=== PATIENT | female | born 1935 | race Caucasian/White ===

== ENCOUNTER 2018-01-22 07:49 | Outpatient (CLI) | payer MEDICARE | END 2018-01-22 07:50 | disposition home or self-care (01) | LOC: BICMAMMO 07:49 | PROVIDERS: ATTEND Internal Medicine | DX: Z12.31 Encounter for screening mammogram for malignant neoplasm of breast (principal); R92.1 Mammographic calcification found on diagnostic imaging of breast | CPT/HCPCS: 77063; 77067 ==

== ENCOUNTER 2019-01-23 10:44 | Outpatient (CLI) | payer MEDICARE ==
--- NOTE | 2019-01-23 13:38 | MMO ---
Bilateral MAMMO Bilat Screen [facility]. CLINICAL HISTORY: Patient is 83 years old and is seen for screening. The patient has the following family history of breast cancer: niece, at age 35. The patient has a history of thyroid cancer. VIEWS: The views performed were: bilateral craniocaudal with tomosynthesis and bilateral mediolateral oblique with tomosynthesis. FILMS COMPARED: The present examination has been compared to prior imaging studies performed at [facility] on 01/22/2018, and at [facility] on 04/18/2011, 04/30/2013, 05/14/2014 and 05/18/2015. MAMMOGRAM FINDINGS: There are scattered fibroglandular densities. Benign calcifications are noted bilaterally. There are no suspicious masses, suspicious calcifications, or new areas of architectural distortion. IMPRESSION: THERE IS NO MAMMOGRAPHIC EVIDENCE OF MALIGNANCY. A ROUTINE FOLLOW-UP MAMMOGRAM IN 1 YEAR IS RECOMMENDED. THE RESULTS OF THIS EXAM WERE SENT TO THE PATIENT. ACR BI-RADS Category 2 - Benign finding MAMMOGRAPHY NOTE: 1. A negative mammogram report should not delay a biopsy if a dominant of clinically suspicious mass is present. 2. Approximately 10% to 15% of breast cancers are not detected by mammography. 3. Adenosis and dense breasts may obscure an underlying neoplasm.
== END 2019-01-23 10:45 | disposition home or self-care (01) ==
LOC: BICMAMMO 10:44
PROVIDERS: ATTEND Internal Medicine
DX: Z12.31 Encounter for screening mammogram for malignant neoplasm of breast (principal); Z80.3 Family history of malignant neoplasm of breast; Z85.850 Personal history of malignant neoplasm of thyroid
CPT/HCPCS: 77063; 77067

== ENCOUNTER 2020-10-21 08:09 | Outpatient (CLI) | payer MEDICARE ==
--- NOTE | 2020-10-21 08:30 | MMO ---
Bilateral MAMMO Bilat Screen [facility]. CLINICAL HISTORY: Patient is 85 years old and is seen for screening. The patient has the following family history of breast cancer: niece, at age 35. The patient has a history of thyroid cancer. VIEWS: The views performed were: bilateral craniocaudal with tomosynthesis and bilateral mediolateral oblique with tomosynthesis. FILMS COMPARED: The present examination has been compared to prior imaging studies performed at [facility] on 01/22/2018 and 01/23/2019, and at [facility] on 05/14/2014 and 05/18/2015. This study has been interpreted with the assistance of computer-aided detection. MAMMOGRAM FINDINGS: There are scattered fibroglandular densities. There are benign appearing calcifications seen in both breasts. There are no suspicious masses, suspicious calcifications, or new areas of architectural distortion. IMPRESSION: THERE IS NO MAMMOGRAPHIC EVIDENCE OF MALIGNANCY. A ROUTINE FOLLOW-UP MAMMOGRAM IN 1 YEAR IS RECOMMENDED. THE RESULTS OF THIS EXAM WERE SENT TO THE PATIENT. ACR BI-RADS Category 2 - Benign finding MAMMOGRAPHY NOTE: 1. A negative mammogram report should not delay a biopsy if a dominant of clinically suspicious mass is present. 2. Approximately 10% to 15% of breast cancers are not detected by mammography. 3. Adenosis and dense breasts may obscure an underlying neoplasm. Reported by: RADHA COATES MD Electonically Signed: [id number]
== END 2020-10-21 08:10 | disposition home or self-care (01) ==
LOC: BICMAMMO 08:09
PROVIDERS: ATTEND Internal Medicine
DX: Z12.31 Encounter for screening mammogram for malignant neoplasm of breast (principal); Z85.850 Personal history of malignant neoplasm of thyroid; Z80.3 Family history of malignant neoplasm of breast
CPT/HCPCS: 77063; 77067

== ENCOUNTER 2021-03-23 09:13 | Inpatient (IN) | payer MEDICARE ==
[2021-03-23] MEDS ORDERED: Iopamidol-370 76% 500 ML 1 ML ONE (09:45)
[2021-03-23 10:21] LABS: #Basophils 0.1 thou/uL (0.0-0.2); #Eosinphils 0.1 thou/uL (0.0-0.7); #Lymphocytes 1.2 thou/uL (1.20-3.40); #Monocytes 0.4 thou/uL (0.11-0.59); %Basophils 0.7 % (0.0-1.0); %Eosinophils 1.5 % (0.0-10.0); %Monocytes 5.6 % (0.0-10.0); %Neutrophils 77.2 % (42.0-75.0); Hemoglobin 12.5 g/dL (12.0-16.0); Mean Corpuscular HGB CONC 31.3 g/dL (32.0-36.0); Mean Corpuscular Hemoglobin 28.2 pg (27.0-31.0); Mean Corpuscular Volume 89.9 fL (78.0-98.0); Mean Platelet Volume 8.1 fL (7.4-10.4); Platelet Count 246 thou/uL (130-400); RBC Distribution Width 11.9 % (11.5-14.5); Red Blood Cell (RBC) Count 4.44 mill/uL (4.20-5.40); White Blood Cell (WBC) Count 7.8 thou/uL (4.8-10.8)
[2021-03-23 10:43] LABS: ALT (SGPT) 13 U/L (8-55); AST (SGOT) 14 U/L (5-34); Albumin 3.9 g/dL (3.4-4.8); Alkaline Phosphatase 62 U/L (40-110); Anion Gap 10 mmol/L (10-20); BUN (Urea Nitrogen) 16 mg/dL (9.8-20.1); Bilirubin, Total 0.8 mg/dL (0.2-1.2); Calc. Creatinine Clearance 0 mL/min (70-130); Calcium 9.1 mg/dL (7.8-10.44); Carbon Dioxide 26 mmol/L (23-31); Chloride 106 mmol/L (98-107); Globulin 2.4 g/dL (2.4-3.5); Glucose 103 mg/dL (83-110); Lipase 36 U/L (8-78); Potassium 3.8 mmol/L (3.5-5.1); Protein, Total 6.3 g/dL (5.8-8.1); Sodium 138 mmol/L (136-145)
[2021-03-23] MEDS ORDERED: Ondansetron PF 4 MG/2 ML Vial ONE ×2 (11:11→14:15)
[2021-03-23] MEDS ORDERED: Lidocaine Viscous Sol 2% 15 ml UD Cup ONE (11:11)
[2021-03-23] MEDS ORDERED: Mag-Al 1200 mg/1200 mg/30 ML UDCUP ONE (11:11)
[2021-03-23] MEDS ORDERED: Morphine 4 MG/ML VIAL ONE ×3 (11:11→15:44)
[2021-03-23] MEDS ORDERED: Ondansetron ODT 4 MG TAB PO PRN (15:22)
[2021-03-23] MEDS ORDERED: Ondansetron PF 4 MG/2 ML Vial IVP PRN (15:22)
[2021-03-23] MEDS: Sodium Chloride 0.9% 1,000 ML IV SCH (15:55)
[2021-03-23] MEDS: Morphine 4 MG/ML VIAL SLOW IVP PRN (15:55)
[2021-03-24] MEDS: Sodium Chloride 0.9% 1,000 ML IV SCH ×3 (01:38→12:28)
[2021-03-24 03:33] VITALS: BMI 23.0
[2021-03-24 06:57] LABS: Anion Gap 8 mmol/L (10-20); BUN (Urea Nitrogen) 13 mg/dL (9.8-20.1); Calc. Creatinine Clearance 51 mL/min (70-130); Calcium 7.7 mg/dL (7.8-10.44); Carbon Dioxide 27 mmol/L (23-31); Chloride 109 mmol/L (98-107); Glucose 81 mg/dL (83-110); Potassium 3.8 mmol/L (3.5-5.1); Sodium 140 mmol/L (136-145)
[2021-03-24 07:37] LABS: #Eosinphils 0.1 thou/uL (0.0-0.7); #Lymphocytes 1.4 thou/uL (1.20-3.40); #Monocytes 0.5 thou/uL (0.11-0.59); #Neutrophils 3.3 thou/uL (1.40-6.50); %Basophils 0.5 % (0.0-1.0); %Eosinophils 2.5 % (0.0-10.0); Hemoglobin 10.5 g/dL (12.0-16.0); MDiff Complete? YES; Mean Corpuscular Hemoglobin 27.5 pg (27.0-31.0); Mean Corpuscular Volume 91.6 fL (78.0-98.0); Mean Platelet Volume 8.1 fL (7.4-10.4); Platelet Count 204 thou/uL (130-400); Platelet Morphology Comment Appears Adequate; Polychromasia SLIGHT = 2-3 cells (100X) (0-2/hpf); RBC Distribution Width 11.7 % (11.5-14.5); Red Blood Cell (RBC) Count 3.83 mill/uL (4.20-5.40); White Blood Cell (WBC) Count 5.3 thou/uL (4.8-10.8)
[2021-03-24 12:00] LABS: SARS-CoV-2 PCR by NAA Not Detected (NotDetected)
[2021-03-24] MEDS: Morphine 4 MG/ML VIAL SLOW IVP PRN (12:02)
[2021-03-24] MEDS ORDERED: Morphine 2 MG/ML VIAL SLOW IVP PRN (16:04)
[2021-03-24 18:06] VITALS: BP 119/70; TEMP 98.1
== END 2021-03-24 18:08 | disposition home or self-care (01) | DRG 390 ==
LOC: SUATTDRO 09:13 → ERS 09:13 → ERHOLD 15:00 → T4-B 20:24
PROVIDERS: ADMIT Internal Medicine; ATTEND Internal Medicine
DX: K56.600 Partial intestinal obstruction, unspecified as to cause (principal); E03.9 Hypothyroidism, unspecified; I10 Essential (primary) hypertension; E78.5 Hyperlipidemia, unspecified; D50.9 Iron deficiency anemia, unspecified; Z20.822 Contact with and (suspected) exposure to COVID-19; Z79.02 Long term (current) use of antithrombotics/antiplatelets; Z79.899 Other long term (current) drug therapy; Z79.82 Long term (current) use of aspirin; Z86.73 Personal history of transient ischemic attack (TIA), and cerebral infarction without residual deficits; Z85.850 Personal history of malignant neoplasm of thyroid; Z90.49 Acquired absence of other specified parts of digestive tract; Z90.710 Acquired absence of both cervix and uterus; Z90.89 Acquired absence of other organs; Z98.890 Other specified postprocedural states
CPT/HCPCS: 36415; 74018; 74177; 74250; 80048; 80053; 83690; 85025; 96374; 96375; 96376; J2270; J2405; Q9967; U0003; U0005

== ENCOUNTER 2021-03-30 16:30 | Inpatient (IN) | payer MEDICARE ==
[~2021-03-30 16:30] MED LIST: Iopamidol-370 76% 500 ML 1 ML ONE
[2021-03-30 17:23] LABS: #Eosinphils 0.1 thou/uL (0.0-0.7); #Monocytes 0.4 thou/uL (0.11-0.59); #Neutrophils 6.6 thou/uL (1.40-6.50); %Basophils 0.2 % (0.0-1.0); %Eosinophils 0.7 % (0.0-10.0); %Lymphocytes 12.6 % (21.0-51.0); %Monocytes 5.2 % (0.0-10.0); %Neutrophils 81.4 % (42.0-75.0); Hemoglobin 12.8 g/dL (12.0-16.0); Mean Corpuscular HGB CONC 31.7 g/dL (32.0-36.0); Mean Corpuscular Hemoglobin 27.6 pg (27.0-31.0); Mean Corpuscular Volume 87.3 fL (78.0-98.0); Mean Platelet Volume 7.6 fL (7.4-10.4); Platelet Count 275 thou/uL (130-400); RBC Distribution Width 11.6 % (11.5-14.5); Red Blood Cell (RBC) Count 4.64 mill/uL (4.20-5.40); White Blood Cell (WBC) Count 8.1 thou/uL (4.8-10.8)
[2021-03-30] MEDS ORDERED: Morphine 2 MG/ML VIAL ONE (17:34)
[2021-03-30] MEDS ORDERED: Ondansetron PF 4 MG/2 ML Vial ONE (17:34)
[2021-03-30 18:07] LABS: ALT (SGPT) 14 U/L (8-55); AST (SGOT) 15 U/L (5-34); Albumin 3.8 g/dL (3.4-4.8); Alkaline Phosphatase 60 U/L (40-110); Anion Gap 16 mmol/L (10-20); BUN (Urea Nitrogen) 10 mg/dL (9.8-20.1); Bilirubin, Total 0.8 mg/dL (0.2-1.2); Calc. Creatinine Clearance 0 mL/min (70-130); Calcium 9.3 mg/dL (7.8-10.44); Carbon Dioxide 24 mmol/L (23-31); Chloride 103 mmol/L (98-107); Globulin 2.2 g/dL (2.4-3.5); Glucose 109 mg/dL (83-110); Lipase 46 U/L (8-78); Potassium 3.8 mmol/L (3.5-5.1); Sodium 139 mmol/L (136-145)
[2021-03-30] MEDS ORDERED: Morphine 4 MG/ML VIAL ONE (19:00)
[2021-03-30] MEDS ORDERED: Pantoprazole 40 MG VIAL ONE (19:01)
[2021-03-30 22:30] VITALS: BMI 23.7
[2021-03-30] MEDS ORDERED: Ondansetron ODT 4 MG TAB SL PRN (22:30)
[2021-03-30] MEDS ORDERED: Ondansetron PF 4 MG/2 ML Vial IVP PRN (22:30)
[2021-03-30] MEDS: Morphine 2 MG/ML VIAL SLOW IVP PRN (22:33)
[2021-03-30] MEDS ORDERED: D5 1/2 NS w/20 mEq KCL 1,000 ML IV SCH (22:45)
[2021-03-30] MEDS ORDERED: Fentanyl 100 MCG/2 ML VIAL SLOW IVP SCH (23:45)
[2021-03-31] MEDS: Morphine 2 MG/ML VIAL SLOW IVP PRN ×2 (03:14→09:22)
[2021-03-31] MEDS ORDERED: Acetaminophen 325 MG TAB PO PRN (03:18)
[2021-03-31] MEDS ORDERED: Ondansetron PF 4 MG/2 ML Vial IVP PRN ×2 (03:18→19:48)
[2021-03-31] MEDS ORDERED: hydrALAZINE 20 MG/ML VIAL SLOW IVP PRN (03:22)
[2021-03-31] MEDS ORDERED: Sodium Chloride 0.9% 1,000 ML IV SCH (03:30)
[2021-03-31 03:52] LABS: #Eosinphils 0.1 thou/uL (0.0-0.7); #Lymphocytes 1.1 thou/uL (1.20-3.40); #Monocytes 0.7 thou/uL (0.11-0.59); #Neutrophils 4.7 thou/uL (1.40-6.50); %Basophils 0.3 % (0.0-1.0); %Eosinophils 1.6 % (0.0-10.0); %Lymphocytes 16.3 % (21.0-51.0); %Neutrophils 71.9 % (42.0-75.0); Hemoglobin 11.6 g/dL (12.0-16.0); Mean Corpuscular Hemoglobin 29.1 pg (27.0-31.0); Mean Corpuscular Volume 88.3 fL (78.0-98.0); Mean Platelet Volume 7.7 fL (7.4-10.4); Platelet Count 208 thou/uL (130-400); RBC Distribution Width 11.6 % (11.5-14.5); Red Blood Cell (RBC) Count 3.98 mill/uL (4.20-5.40); White Blood Cell (WBC) Count 6.6 thou/uL (4.8-10.8)
[2021-03-31 04:14] LABS: Anion Gap 12 mmol/L (10-20); BUN (Urea Nitrogen) 10 mg/dL (9.8-20.1); Calc. Creatinine Clearance 56 mL/min (70-130); Calcium 8.4 mg/dL (7.8-10.44); Carbon Dioxide 25 mmol/L (23-31); Chloride 105 mmol/L (98-107); Glucose 137 mg/dL (83-110); Sodium 138 mmol/L (136-145)
[2021-03-31] MEDS: Levothyroxine 150 MCG TAB PO SCH (05:11)
[2021-03-31] MEDS ORDERED: Fentanyl 100 MCG/2 ML VIAL SLOW IVP SCH (06:30)
[2021-03-31] MEDS ORDERED: Lisinopril/Hydrochlorothiazide 10 mg/12.5 mg Tablet PO SCH (09:00)
[2021-03-31] MEDS ORDERED: Pantoprazole 40 MG VIAL IVP SCH (09:00)
[2021-03-31] MEDS ORDERED: HYDROcodone/Acetaminophen 5/325 mg Tablet PO PRN (10:54)
[2021-03-31 11:38] LABS: Lactic Acid 1.7 mmol/L (0.5-2.2)
[2021-03-31] MEDS ORDERED: Morphine 2 MG/ML VIAL SLOW IVP PRN (11:45)
[2021-03-31] MEDS ORDERED: Promethazine HCl 12.5 MG in Sodium Chloride 0.9% 50 ML IVPB PRN (11:47)
[2021-03-31] MEDS ORDERED: Promethazine HCl 25 MG/ML VIAL IM PRN ×2 (12:11→19:48)
[2021-03-31] MEDS ORDERED: MEROPENEM 1 GM/50 ML 1 GM in Premix Bag 1 BAG IVPB SCH (12:15)
[2021-03-31] MEDS: Sodium Chloride 0.9% 1,000 ML IV SCH ×2 (13:51→16:22)
[2021-03-31] MEDS ORDERED: Lidocaine 1% w/Epinephrine 1:100K 20 ML VIAL ONE (18:09)
[2021-03-31] MEDS ORDERED: Bupivacaine PF 0.5% 30 ML VIAL ONE (18:09)
[2021-03-31] MEDS ORDERED: Fentanyl 100 MCG/2 ML VIAL ONE ×2 (18:12→18:14)
[2021-03-31] MEDS ORDERED: SUGAMMADEX SODIUM 200 MG/2 ML VIAL ONE (18:23)
[2021-03-31] MEDS ORDERED: Dexamethasone 20 MG/5 ML VIAL ONE (18:35)
[2021-03-31] MEDS ORDERED: PROPOFOL 200 MG/20 ML VIAL ONE (18:35)
[2021-03-31] MEDS ORDERED: Rocuronium Bromide 10 MG/ML (10ML VIAL) ONE (18:35)
[2021-03-31] MEDS ORDERED: Calcium Chloride 1 GM/10 ML Abboject SYRINGE ONE (18:35)
[2021-03-31] MEDS ORDERED: Ondansetron PF 4 MG/2 ML Vial ONE (18:35)
[2021-03-31] MEDS ORDERED: Lidocaine 1% PF 5 ML VIAL ONE (18:35)
[2021-03-31] MEDS ORDERED: Succinylcholine 200 MG/10 ml SYRINGE FS ONE (18:35)
[2021-03-31] MEDS ORDERED: Promethazine HCl 25 MG/ML VIAL IVPB PRN (19:48)
[2021-03-31] MEDS ORDERED: Ondansetron ODT 4 MG TAB PO PRN (19:48)
[2021-03-31] MEDS ORDERED: Ondansetron HCl/PF 4 MG/2 ML Vial IVP PRN (19:48)
[2021-03-31] MEDS ORDERED: Meperidine HCl/PF 25 MG/ML VIAL SLOW IVP PRN (19:48)
[2021-03-31] MEDS: Lactated Ringer's 1,000 ML IV SCH (20:36)
[2021-04-01] MEDS: Lactated Ringer's 1,000 ML IV SCH ×3 (04:21→19:45)
[2021-04-01] MEDS: Levothyroxine 150 MCG TAB PO SCH (04:53)
[2021-04-01 06:47] LABS: #Lymphocytes 1.2 thou/uL (1.20-3.40); #Monocytes 0.7 thou/uL (0.11-0.59); #Neutrophils 5.3 thou/uL (1.40-6.50); %Lymphocytes 16.7 % (21.0-51.0); %Neutrophils 73.2 % (42.0-75.0); Hemoglobin 11.6 g/dL (12.0-16.0); Mean Corpuscular HGB CONC 32.8 g/dL (32.0-36.0); Mean Corpuscular Volume 88.5 fL (78.0-98.0); Mean Platelet Volume 7.9 fL (7.4-10.4); Platelet Count 225 thou/uL (130-400); RBC Distribution Width 11.7 % (11.5-14.5); Red Blood Cell (RBC) Count 3.99 mill/uL (4.20-5.40); White Blood Cell (WBC) Count 7.2 thou/uL (4.8-10.8)
[2021-04-01 07:08] LABS: Anion Gap 13 mmol/L (10-20); BUN (Urea Nitrogen) 17 mg/dL (9.8-20.1); Calc. Creatinine Clearance 50 mL/min (70-130); Calcium 8.2 mg/dL (7.8-10.44); Carbon Dioxide 22 mmol/L (23-31); Chloride 111 mmol/L (98-107); Glucose 110 mg/dL (83-110); Sodium 142 mmol/L (136-145)
[2021-04-01] MEDS ORDERED: Acetaminophen 500 MG TAB PO PRN (08:29)
[2021-04-01] MEDS ORDERED: traMADol HCl 50 MG TAB PO PRN (08:29)
[2021-04-01] MEDS ORDERED: Ferrous Sulfate 325 MG TAB PO SCH (08:45)
[2021-04-01] MEDS ORDERED: Meloxicam 15 MG TAB PO SCH (09:00)
[2021-04-01] MEDS: Aspirin Chewable 81 MG TAB PO SCH (10:52)
[2021-04-01] MEDS: Estradiol 1 MG TAB PO SCH (10:52)
[2021-04-01] MEDS: Clopidogrel Bisulfate 75 MG TAB PO SCH (10:52)
[2021-04-01] MEDS: Multivit, Therapeutic 1 TAB PO SCH (10:53)
[2021-04-01] MEDS: GoLYTELY 4,000 ml Bottle PO SCH (19:37)
[2021-04-01] MEDS ORDERED: Atorvastatin Calcium 10 MG TAB PO SCH (21:00)
[2021-04-02] MEDS: GoLYTELY 4,000 ml Bottle PO SCH (02:53)
[2021-04-02] MEDS: Lactated Ringer's 1,000 ML IV SCH ×2 (04:36→16:04)
[2021-04-02 04:49] LABS: #Eosinphils 0.3 thou/uL (0.0-0.7); #Lymphocytes 1.7 thou/uL (1.20-3.40); #Monocytes 0.7 thou/uL (0.11-0.59); #Neutrophils 4.3 thou/uL (1.40-6.50); %Basophils 0.1 % (0.0-1.0); %Eosinophils 4.6 % (0.0-10.0); %Lymphocytes 23.8 % (21.0-51.0); %Monocytes 9.9 % (0.0-10.0); %Neutrophils 61.5 % (42.0-75.0); Hemoglobin 12.5 g/dL (12.0-16.0); Mean Corpuscular HGB CONC 32.6 g/dL (32.0-36.0); Mean Corpuscular Hemoglobin 29.3 pg (27.0-31.0); Mean Corpuscular Volume 89.7 fL (78.0-98.0); Mean Platelet Volume 7.4 fL (7.4-10.4); Platelet Count 253 thou/uL (130-400); RBC Distribution Width 11.5 % (11.5-14.5); Red Blood Cell (RBC) Count 4.26 mill/uL (4.20-5.40); White Blood Cell (WBC) Count 7.1 thou/uL (4.8-10.8)
[2021-04-02 05:09] LABS: Anion Gap 13 mmol/L (10-20); BUN (Urea Nitrogen) 11 mg/dL (9.8-20.1); Calc. Creatinine Clearance 50 mL/min (70-130); Carbon Dioxide 25 mmol/L (23-31); Chloride 107 mmol/L (98-107); Potassium 3.6 mmol/L (3.5-5.1); Sodium 141 mmol/L (136-145)
[2021-04-02 05:10] LABS: Calcium 8.5 mg/dL (7.8-10.44); Glucose 98 mg/dL (83-110)
[2021-04-02] MEDS: Levothyroxine 150 MCG TAB PO SCH (06:16)
[2021-04-02] MEDS ORDERED: Ferrous Sulfate 325 MG TAB PO SCH (08:00)
[2021-04-02] MEDS: Clopidogrel Bisulfate 75 MG TAB PO SCH (09:00)
[2021-04-02] MEDS: Aspirin Chewable 81 MG TAB PO SCH (09:00)
[2021-04-02 09:06] LABS: #Eosinphils 0.3 thou/uL (0.0-0.7); #Lymphocytes 1.2 thou/uL (1.20-3.40); #Monocytes 0.4 thou/uL (0.11-0.59); #Neutrophils 3.4 thou/uL (1.40-6.50); %Basophils 0.2 % (0.0-1.0); %Eosinophils 5.2 % (0.0-10.0); %Lymphocytes 22.8 % (21.0-51.0); %Monocytes 7.3 % (0.0-10.0); %Neutrophils 64.5 % (42.0-75.0); Hemoglobin 10.9 g/dL (12.0-16.0); Mean Corpuscular HGB CONC 31.9 g/dL (32.0-36.0); Mean Corpuscular Hemoglobin 28.4 pg (27.0-31.0); Mean Corpuscular Volume 89.2 fL (78.0-98.0); Mean Platelet Volume 7.9 fL (7.4-10.4); Platelet Count 217 thou/uL (130-400); RBC Distribution Width 11.5 % (11.5-14.5); Red Blood Cell (RBC) Count 3.83 mill/uL (4.20-5.40); White Blood Cell (WBC) Count 5.2 thou/uL (4.8-10.8)
[2021-04-02] MEDS ORDERED: Ketamine 50 MG/ML (10ML VIAL) ONE (11:29)
[2021-04-02] MEDS ORDERED: PROPOFOL 200 MG/20 ML VIAL ONE (11:42)
[2021-04-02] MEDS ORDERED: Lidocaine 1% PF 5 ML VIAL ONE (11:42)
[2021-04-02 13:21] VITALS: BP 142/67; TEMP 97.7
[2021-04-02 14:09] LABS: #Eosinphils 0.3 thou/uL (0.0-0.7); #Lymphocytes 1.3 thou/uL (1.20-3.40); #Monocytes 0.4 thou/uL (0.11-0.59); #Neutrophils 3.8 thou/uL (1.40-6.50); %Basophils 0.3 % (0.0-1.0); %Lymphocytes 21.8 % (21.0-51.0); %Monocytes 6.8 % (0.0-10.0); Hemoglobin 11.6 g/dL (12.0-16.0); Mean Corpuscular HGB CONC 33.9 g/dL (32.0-36.0); Mean Corpuscular Volume 88.3 fL (78.0-98.0); Mean Platelet Volume 7.5 fL (7.4-10.4); Platelet Count 225 thou/uL (130-400); RBC Distribution Width 11.5 % (11.5-14.5); Red Blood Cell (RBC) Count 3.87 mill/uL (4.20-5.40); White Blood Cell (WBC) Count 5.8 thou/uL (4.8-10.8)
[2021-04-02] MEDS: Multivit, Therapeutic 1 TAB PO SCH (15:46)
[2021-04-02] MEDS: Estradiol 1 MG TAB PO SCH (15:47)
== END 2021-04-02 17:00 | disposition home or self-care (01) | DRG 327 ==
LOC: ERS 16:30 → ERHOLD 20:39 → ONC 22:26 → SURG A 04-02 13:10 → ONC 04-02 13:11
PROVIDERS: ADMIT Internal Medicine; ATTEND Internal Medicine
PROC: 0DJ64ZZ Inspection of Stomach, Percutaneous Endoscopic Approach (ICD-10-PCS; principal; 2021-03-31)
PROC: 0DB68ZX Excision of Stomach, Via Natural or Artificial Opening Endoscopic, Diagnostic (ICD-10-PCS; 2021-04-02)
PROC: 0DBH8ZX Excision of Cecum, Via Natural or Artificial Opening Endoscopic, Diagnostic (ICD-10-PCS; 2021-04-02)
DX: K58.9 Irritable bowel syndrome, unspecified (principal); K56.699 Other intestinal obstruction unspecified as to partial versus complete obstruction; K57.32 Diverticulitis of large intestine without perforation or abscess without bleeding; I10 Essential (primary) hypertension; E78.5 Hyperlipidemia, unspecified; D50.9 Iron deficiency anemia, unspecified; E89.0 Postprocedural hypothyroidism; G89.29 Other chronic pain; K64.4 Residual hemorrhoidal skin tags; K64.8 Other hemorrhoids; Z79.82 Long term (current) use of aspirin; Z79.899 Other long term (current) drug therapy; Z86.73 Personal history of transient ischemic attack (TIA), and cerebral infarction without residual deficits; Z85.850 Personal history of malignant neoplasm of thyroid; Z90.49 Acquired absence of other specified parts of digestive tract; Z90.710 Acquired absence of both cervix and uterus
CPT/HCPCS: 36415; 74018; 74177; 80048; 80053; 83605; 83690; 84484; 85025; 85652; 86140; 88305; 88312; 93005; 96374; 96375; 96376; C9113; J1100; J2270; J2405; J2704; J3010; J3480; Q9967; S0020

== ENCOUNTER 2021-05-14 07:57 | Outpatient (CLI) | payer MEDICARE | END 2021-05-14 07:58 | disposition home or self-care (01) | LOC: BICRAD 07:57 | PROVIDERS: ATTEND Internal Medicine | DX: D50.0 Iron deficiency anemia secondary to blood loss (chronic) (principal); K63.89 Other specified diseases of intestine; S30.850A Superficial foreign body of lower back and pelvis, initial encounter | CPT/HCPCS: 74018 ==

== ENCOUNTER 2021-05-26 12:34 | Outpatient (CLI) | payer MEDICARE ==
[~2021-05-26 12:34] MED LIST changes: +Iopamidol 370 76% 100 ML VIAL ONE; -Iopamidol-370 76% 500 ML 1 ML ONE
== END 2021-05-26 12:35 | disposition home or self-care (01) ==
LOC: CT 12:34
PROVIDERS: ATTEND Internal Medicine
DX: R93.3 Abnormal findings on diagnostic imaging of other parts of digestive tract (principal); K56.609 Unspecified intestinal obstruction, unspecified as to partial versus complete obstruction
CPT/HCPCS: 74177; 82565; Q9967

== ENCOUNTER 2021-05-27 15:45 | Inpatient (IN) | payer MEDICARE ==
[2021-05-27 14:17] VITALS: BMI 21.9
[2021-05-28] MEDS ORDERED: Ketorolac Tromethamine 30 MG/ML VIAL ONE (07:30)
[2021-05-28] MEDS ORDERED: Acetaminophen 500 MG TAB ONE (07:30)
[2021-05-28] MEDS ORDERED: MEROPENEM 1 GM/50 ML 1 GM in Premix Bag 1 BAG IVPB SCH (07:45)
[2021-05-28] MEDS ORDERED: Fentanyl 100 MCG/2 ML VIAL ONE ×4 (08:33→14:38)
[2021-05-28] MEDS ORDERED: Midazolam HCl 2 mg/2 ml Vial ONE (08:33)
[2021-05-28] MEDS ORDERED: Lidocaine 1% (PF) 30 ML VIAL ONE (08:33)
[2021-05-28] MEDS ORDERED: Bupivacaine PF 0.5% 30 ML VIAL ONE (08:43)
[2021-05-28] MEDS ORDERED: SUGAMMADEX SODIUM 200 MG/2 ML VIAL ONE (08:56)
[2021-05-28] MEDS ORDERED: Bupivacaine HCl 0.5%/Epinephrine 1:200,000/PF 30 ml Vial ONE (09:22)
[2021-05-28] MEDS ORDERED: Lidocaine 1% PF 5 ML VIAL ONE (09:22)
[2021-05-28] MEDS ORDERED: ePHEDrine 50 MG/ML VIAL ONE (09:22)
[2021-05-28] MEDS ORDERED: Ondansetron PF 4 MG/2 ML Vial ONE (09:22)
[2021-05-28] MEDS ORDERED: PHENYLEPHRINE-NS 100 MCG/ML 10 ML SYRINGE ONE (09:22)
[2021-05-28] MEDS ORDERED: Rocuronium Bromide 10 MG/ML (10ML VIAL) ONE (09:22)
[2021-05-28] MEDS ORDERED: PROPOFOL 200 MG/20 ML VIAL ONE (09:22)
[2021-05-28] MEDS ORDERED: Morphine 4 MG/ML VIAL SLOW IVP PRN (11:40)
[2021-05-28] MEDS ORDERED: Ondansetron PF 4 MG/2 ML Vial IVP PRN (11:40)
[2021-05-28] MEDS ORDERED: Morphine 2 MG/ML VIAL SLOW IVP PRN (11:40)
[2021-05-28] MEDS ORDERED: Ondansetron ODT 4 MG TAB PO PRN (11:40)
[2021-05-28] MEDS ORDERED: hydrALAZINE 20 MG/ML VIAL SLOW IVP PRN (11:40)
[2021-05-28] MEDS ORDERED: Ibuprofen 600 MG TAB PO PRN (11:48)
[2021-05-28] MEDS: Sodium Chloride 0.45% 1,000 ML IV SCH ×2 (18:24→20:03)
[2021-05-28] MEDS: Ketorolac Tromethamine 30 MG/ML VIAL IVP PRN (20:02)
[2021-05-28] MEDS: Sulfameth/Trimethoprim DS 800-160mg TAB PO SCH (20:02)
[2021-05-28] MEDS: Enoxaparin Sodium 40 MG/0.4 ML SYRINGE SC SCH (20:02)
[2021-05-28] MEDS: Famotidine 20 MG TAB PO SCH (20:02)
[2021-05-29] MEDS: Ketorolac Tromethamine 30 MG/ML VIAL IVP PRN ×3 (01:43→17:22)
[2021-05-29] MEDS: Sodium Chloride 0.45% 1,000 ML IV SCH ×3 (03:58→21:24)
[2021-05-29 06:30] LABS: #Lymphocytes 1.2 thou/uL (1.20-3.40); #Monocytes 0.5 thou/uL (0.11-0.59); %Basophils 0.3 % (0.0-1.0); %Eosinophils 0.3 % (0.0-10.0); %Monocytes 5.7 % (0.0-10.0); %Neutrophils 79.7 % (42.0-75.0); Hemoglobin 9.8 g/dL (12.0-16.0); Mean Corpuscular HGB CONC 32.7 g/dL (32.0-36.0); Mean Corpuscular Hemoglobin 28.4 pg (27.0-31.0); Mean Corpuscular Volume 86.7 fL (78.0-98.0); Mean Platelet Volume 8.2 fL (7.4-10.4); Platelet Count 194 thou/uL (130-400); RBC Distribution Width 14.1 % (11.5-14.5); Red Blood Cell (RBC) Count 3.46 mill/uL (4.20-5.40); White Blood Cell (WBC) Count 8.7 thou/uL (4.8-10.8)
[2021-05-29 06:44] LABS: Anion Gap 9 mmol/L (10-20); BUN (Urea Nitrogen) 18 mg/dL (9.8-20.1); Calc. Creatinine Clearance 43 mL/min (70-130); Calcium 7.6 mg/dL (7.8-10.44); Carbon Dioxide 23 mmol/L (23-31); Chloride 110 mmol/L (98-107); Glucose 117 mg/dL (83-110); Potassium 4.4 mmol/L (3.5-5.1); Sodium 138 mmol/L (136-145)
[2021-05-29] MEDS: Sulfameth/Trimethoprim DS 800-160mg TAB PO SCH ×2 (08:46→21:23)
[2021-05-29] MEDS: Levothyroxine 150 MCG TAB PO SCH (08:46)
[2021-05-29] MEDS: Famotidine 20 MG TAB PO SCH ×2 (08:46→21:23)
[2021-05-29] MEDS: Aspirin Chewable 81 MG TAB PO SCH (08:46)
[2021-05-29] MEDS: Lisinopril 10 MG TAB PO SCH (08:47)
[2021-05-29] MEDS: Acetaminophen 500 MG TAB PO PRN ×2 (11:58→21:23)
[2021-05-29] MEDS: traMADol HCl 50 MG TAB PO PRN ×2 (11:59→21:23)
[2021-05-29] MEDS: Enoxaparin Sodium 40 MG/0.4 ML SYRINGE SC SCH (21:23)
[2021-05-30] MEDS: Sodium Chloride 0.45% 1,000 ML IV SCH (05:22)
[2021-05-30 06:11] LABS: #Lymphocytes 1.2 thou/uL (1.20-3.40); #Neutrophils 9.5 thou/uL (1.40-6.50); %Basophils 0.3 % (0.0-1.0); %Eosinophils 1.7 % (0.0-10.0); %Lymphocytes 10.3 % (21.0-51.0); %Monocytes 4.8 % (0.0-10.0); %Neutrophils 82.9 % (42.0-75.0); Hemoglobin 8.9 g/dL (12.0-16.0); Mean Corpuscular HGB CONC 33.1 g/dL (32.0-36.0); Mean Corpuscular Hemoglobin 28.7 pg (27.0-31.0); Mean Corpuscular Volume 86.7 fL (78.0-98.0); Mean Platelet Volume 8.1 fL (7.4-10.4); Platelet Count 178 thou/uL (130-400); RBC Distribution Width 14.2 % (11.5-14.5); Red Blood Cell (RBC) Count 3.09 mill/uL (4.20-5.40); White Blood Cell (WBC) Count 11.5 thou/uL (4.8-10.8)
[2021-05-30 06:12] LABS: #Eosinphils 0.2 thou/uL (0.0-0.7); #Monocytes 0.6 thou/uL (0.11-0.59)
[2021-05-30 06:39] LABS: Anion Gap 7 mmol/L (10-20); BUN (Urea Nitrogen) 24 mg/dL (9.8-20.1); Calc. Creatinine Clearance 41 mL/min (70-130); Calcium 7.8 mg/dL (7.8-10.44); Carbon Dioxide 26 mmol/L (23-31); Chloride 109 mmol/L (98-107); Glucose 103 mg/dL (83-110); Magnesium 1.9 mg/dL (1.6-2.6); Phosphorus 2.6 mg/dL (2.3-4.7); Potassium 4.6 mmol/L (3.5-5.1); Sodium 137 mmol/L (136-145)
[2021-05-30] MEDS: Famotidine 20 MG TAB PO SCH ×2 (08:56→20:16)
[2021-05-30] MEDS: Sulfameth/Trimethoprim DS 800-160mg TAB PO SCH ×2 (08:56→20:16)
[2021-05-30] MEDS: Aspirin Chewable 81 MG TAB PO SCH (08:56)
[2021-05-30] MEDS: Levothyroxine 150 MCG TAB PO SCH (08:57)
[2021-05-30] MEDS: Acetaminophen 500 MG TAB PO PRN ×2 (08:57→23:58)
[2021-05-30] MEDS: traMADol HCl 50 MG TAB PO PRN ×2 (08:58→14:17)
[2021-05-30] MEDS: Lisinopril 10 MG TAB PO SCH (08:59)
[2021-05-30] MEDS: Enoxaparin Sodium 40 MG/0.4 ML SYRINGE SC SCH (20:16)
[2021-05-31] MEDS ORDERED: Polyethylene Glycol 3350 17 GM Packet PO SCH (09:00)
[2021-05-31] MEDS: Sulfameth/Trimethoprim DS 800-160mg TAB PO SCH (09:10)
[2021-05-31] MEDS: Aspirin Chewable 81 MG TAB PO SCH (09:10)
[2021-05-31] MEDS: Famotidine 20 MG TAB PO SCH (09:10)
[2021-05-31] MEDS: Levothyroxine 150 MCG TAB PO SCH (09:10)
[2021-05-31] MEDS: Acetaminophen 500 MG TAB PO PRN ×2 (09:14→15:30)
[2021-05-31 12:25] VITALS: TEMP 98
[2021-05-31] MEDS: Lisinopril 10 MG TAB PO SCH (15:30)
[2021-05-31 15:32] VITALS: BP 135/66
== END 2021-05-31 15:30 | disposition home or self-care (01) | DRG 330 ==
LOC: SURG A 05-28 07:04
PROVIDERS: ADMIT Specialist; ATTEND Specialist
PROC: 0DB80ZZ Excision of Small Intestine, Open Approach (ICD-10-PCS; principal; 2021-05-28)
DX: K56.600 Partial intestinal obstruction, unspecified as to cause (principal); T81.50 Unspecified complication of foreign body accidentally left in body following procedure; Y83.8 Other surgical procedures as the cause of abnormal reaction of the patient, or of later complication, without mention of misadventure at the time of the procedure; K28.9 Gastrojejunal ulcer, unspecified as acute or chronic, without hemorrhage or perforation; Z20.822 Contact with and (suspected) exposure to COVID-19; I10 Essential (primary) hypertension; Z79.899 Other long term (current) drug therapy; R93.3 Abnormal findings on diagnostic imaging of other parts of digestive tract
CPT/HCPCS: 36415; 36416; 74177; 80048; 80053; 82565; 83036; 83735; 84100; 85025; 88307; J1650; J1885; J2001; J2250; J2270; J2405; J2704; J3010; J3490; Q9967; S0020; U0002

== ENCOUNTER 2023-01-24 09:37 | Outpatient (CLI) | payer MEDICARE | END 2023-01-24 09:38 | disposition home or self-care (01) | LOC: BICMAMMO 09:37 | PROVIDERS: ATTEND Internal Medicine | DX: Z12.31 Encounter for screening mammogram for malignant neoplasm of breast (principal); Z80.3 Family history of malignant neoplasm of breast; Z85.850 Personal history of malignant neoplasm of thyroid | CPT/HCPCS: 77063; 77067 ==

== ENCOUNTER 2025-07-03 13:04 | Inpatient (IN) | payer MEDICARE ==
[2025-07-03] MEDS ORDERED: Iopamidol-370 76% 500 ML MDV (1 ML CHARGE) ONE (13:32)
[2025-07-03] MEDS ORDERED: Ondansetron PF 4 MG/2 ML Vial ONE (14:03)
[2025-07-03 14:35] LABS: #Basophils Less than 0.03 10x3/uL (0.0-0.2); #Eosinophils 0.04 10x3/uL (0.0-0.7); #Monocytes 0.24 10x3/uL (0.11-0.59); #Neutrophils 9.70 10x3/uL (1.40-6.50); %Basophils 0.2 % (0.0-1.0); %Eosinophils 0.4 % (0.0-10.0); %Lymphocytes 7.6 % (21.0-51.0); %Monocytes 2.2 % (0.0-10.0); %Neutrophils 89.2 % (42.0-75.0); Hematocrit 45.7 % (36.0-47.0); Hemoglobin 15.5 g/dL (12.0-16.0); Mean Corpuscular Hemoglobin 30.8 pg (27.0-31.0); Mean Corpuscular Volume 90.7 fL (78.0-98.0); Platelet Count 215 10x3/uL (130-400); Red Blood Cell (RBC) Count 5.04 mill/uL (4.20-5.40); White Blood Cell (WBC) Count 10.87 10x3/uL (4.8-10.8)
[2025-07-03 14:57] LABS: ALT (SGPT) 21 U/L (Less than 34); AST (SGOT) 30 U/L (11-34); Albumin 4.0 g/dL (3.1-4.5); Alkaline Phosphatase 63 U/L (40-110); Anion Gap 19 mmol/L (10-20); BUN (Urea Nitrogen) 21 mg/dL (9.8-20.1); Bilirubin, Total 1.8 mg/dL (0.3-1.2); Calc. Creatinine Clearance 0 mL/min (70-130); Calcium 9.7 mg/dL (7.8-10.44); Carbon Dioxide 24 mmol/L (23-31); Chloride 101 mmol/L (98-107); Globulin 3.2 g/dL (2.4-3.5); Glucose 135 mg/dL (83-110); Potassium 4.7 mmol/L (3.5-5.1); Sodium 139 mmol/L (136-145)
[2025-07-03 17:19] LABS: CAUTI Indications for Culture Dysuria,urgency,freq; Glucose, Urine (Dipstick) Normal (Negative); Leukocyte 25 Leu/uL (Negative); Protein, Urine (Dipstick) Negative (Neg-Trace); RBC/HPF 0-3 HPF (0-3); Specific Gravity, Urine 1.021 (1.002-1.036)
[2025-07-03 17:20] LABS: Bacteria/HPF 1+ HPF (None Seen)
[2025-07-03 17:21] LABS: Urine Culture Reflex No No
[2025-07-03] MEDS ORDERED: cefTRIAXone (ROCEPHIN) 1 GM VIAL ONE (17:31)
[2025-07-03] MEDS ORDERED: Dextrose 50% Abboject 50 ML SYRINGE SLOW IVP PRN (19:50)
[2025-07-03] MEDS ORDERED: Glucagon 1 MG/ML KIT IM PRN (19:50)
[2025-07-03] MEDS ORDERED: Acetaminophen 325 MG TAB PO PRN (19:50)
[2025-07-03] MEDS ORDERED: Ondansetron PF 4 MG/2 ML Vial IVP PRN (19:50)
[2025-07-03] MEDS: Benzocaine/Menthol 1 LOZ LOZ PO PRN (21:49)
[2025-07-03] MEDS: Heparin 5,000 UNITS/ML VIAL SC SCH (22:08)
[2025-07-03] MEDS: Famotidine 20 MG TAB PO SCH (22:37)
[2025-07-04 05:44] VITALS: BMI 23.0
[2025-07-04 09:47] LABS: ALT (SGPT) 18 U/L (Less than 34); AST (SGOT) 21 U/L (11-34); Albumin 3.1 g/dL (3.1-4.5); Alkaline Phosphatase 51 U/L (40-110); Anion Gap 13 mmol/L (10-20); BUN (Urea Nitrogen) 18 mg/dL (9.8-20.1); Bilirubin, Total 1.4 mg/dL (0.3-1.2); Calc. Creatinine Clearance 46 mL/min (70-130); Calcium 8.4 mg/dL (7.8-10.44); Carbon Dioxide 26 mmol/L (23-31); Chloride 106 mmol/L (98-107); Globulin 2.4 g/dL (2.4-3.5); Glucose 120 mg/dL (83-110); Potassium 4.1 mmol/L (3.5-5.1); Sodium 141 mmol/L (136-145)
[2025-07-04] MEDS ORDERED: hydrALAZINE 20 MG/ML VIAL SLOW IVP PRN (09:54)
[2025-07-04] MEDS: Phenol 177 ML BOT PO PRN (13:08)
[2025-07-04] MEDS: Carvedilol 3.125 MG TAB PO SCH (18:24)
[2025-07-04] MEDS: Melatonin 3 MG TAB PO PRN (20:11)
[2025-07-05 05:04] LABS: #Basophils 0.04 10x3/uL (0.0-0.2); #Eosinophils 0.21 10x3/uL (0.0-0.7); #Monocytes 0.57 10x3/uL (0.11-0.59); #Neutrophils 4.72 10x3/uL (1.40-6.50); %Basophils 0.6 % (0.0-1.0); %Eosinophils 3.1 % (0.0-10.0); %Lymphocytes 17.8 % (21.0-51.0); %Monocytes 8.4 % (0.0-10.0); %Neutrophils 69.8 % (42.0-75.0); Hematocrit 37.9 % (36.0-47.0); Hemoglobin 11.7 g/dL (12.0-16.0); Mean Corpuscular Hemoglobin 29.2 pg (27.0-31.0); Mean Corpuscular Volume 94.5 fL (78.0-98.0); Platelet Count 149 10x3/uL (130-400); Red Blood Cell (RBC) Count 4.01 mill/uL (4.20-5.40); White Blood Cell (WBC) Count 6.76 10x3/uL (4.8-10.8)
[2025-07-05 05:33] LABS: Anion Gap 13 mmol/L (10-20); BUN (Urea Nitrogen) 13 mg/dL (9.8-20.1); Calc. Creatinine Clearance 51 mL/min (70-130); Calcium 8.3 mg/dL (7.8-10.44); Carbon Dioxide 26 mmol/L (23-31); Chloride 107 mmol/L (98-107); Glucose 85 mg/dL (83-110); Potassium 3.8 mmol/L (3.5-5.1); Sodium 142 mmol/L (136-145)
[2025-07-05] MEDS ORDERED: MD-Gastroview 120 ML BOT ONE (14:34)
[2025-07-06 05:18] LABS: #Basophils Less than 0.03 10x3/uL (0.0-0.2); #Eosinophils 0.10 10x3/uL (0.0-0.7); #Monocytes 0.57 10x3/uL (0.11-0.59); #Neutrophils 5.75 10x3/uL (1.40-6.50); %Basophils 0.3 % (0.0-1.0); %Eosinophils 1.3 % (0.0-10.0); %Lymphocytes 15.3 % (21.0-51.0); %Monocytes 7.5 % (0.0-10.0); %Neutrophils 75.2 % (42.0-75.0); Hematocrit 38.2 % (36.0-47.0); Hemoglobin 12.3 g/dL (12.0-16.0); Mean Corpuscular Hemoglobin 29.9 pg (27.0-31.0); Mean Corpuscular Volume 92.9 fL (78.0-98.0); Platelet Count 161 10x3/uL (130-400); Red Blood Cell (RBC) Count 4.11 mill/uL (4.20-5.40); White Blood Cell (WBC) Count 7.64 10x3/uL (4.8-10.8)
[2025-07-06 05:33] LABS: Anion Gap 15 mmol/L (10-20); BUN (Urea Nitrogen) 16 mg/dL (9.8-20.1); Calc. Creatinine Clearance 51 mL/min (70-130); Calcium 8.7 mg/dL (7.8-10.44); Carbon Dioxide 27 mmol/L (23-31); Chloride 109 mmol/L (98-107); Glucose 97 mg/dL (83-110); Potassium 3.7 mmol/L (3.5-5.1); Sodium 147 mmol/L (136-145)
[2025-07-06 22:41] VITALS: BP 133/78; TEMP 98.2
== END 2025-07-06 14:45 | disposition home or self-care (01) | DRG 390 ==
LOC: ERS 13:04 → SURG B 19:50
PROVIDERS: ADMIT Surgery; ATTEND Surgery
PROC: 0D9670Z Drainage of Stomach with Drainage Device, Via Natural or Artificial Opening (ICD-10-PCS; principal; 2025-07-04)
DX: K56.600 Partial intestinal obstruction, unspecified as to cause (principal); D50.9 Iron deficiency anemia, unspecified; E78.5 Hyperlipidemia, unspecified; E89.0 Postprocedural hypothyroidism; I10 Essential (primary) hypertension; F32.A Depression, unspecified; Z85.850 Personal history of malignant neoplasm of thyroid; Z86.73 Personal history of transient ischemic attack (TIA), and cerebral infarction without residual deficits; Z98.890 Other specified postprocedural states; Z90.89 Acquired absence of other organs; Z90.49 Acquired absence of other specified parts of digestive tract; Z90.710 Acquired absence of both cervix and uterus; Z79.899 Other long term (current) drug therapy; Z79.890 Hormone replacement therapy
CPT/HCPCS: 36415; 71045; 74177; 74250; 80048; 80053; 81001; 84484; 85025; 93005; 96374; 96375; 96376; J0696; J1644; J7030; J7120; Q9963; Q9967